=== PATIENT | male | born 1990 | race Caucasian/White ===

== ENCOUNTER 2017-08-27 19:29 | Emergency (ER) | payer MEDICAID, OTHER ==
[2017-08-27] MEDS: LORAZEPAM 1 MG TAB PO (21:01)
== END 2017-08-27 21:52 | disposition home or self-care (01) ==
LOC: FTE 19:29
DX: F41.9 Anxiety disorder, unspecified (principal); F17.210 Nicotine dependence, cigarettes, uncomplicated; F14.10 Cocaine abuse, uncomplicated
CPT/HCPCS: 93005; 99283-25